=== PATIENT | male | born 1995 | race Caucasian/White ===

== ENCOUNTER 2019-12-17 17:06 | Emergency (ER) | payer SELFPAY ==
--- NOTE | 2019-12-17 17:25 | PDOC ---
Rapid Medical Evaluation Time Seen by Provider: 12/17/19 17:21 Medical Evaluation: 12/17/19 17:22 Pt presents for evaluation for detox. He snorts heroine daily for 2 years. Last used today. Exam: NAD, pupils EOMI Orders: basic labs, urine tox Pt to proceed to the ER for further evaluation Discharge Disposition - Diagnosis Desire for detoxification - Referrals - Patient Instructions - Post Discharge Activity
[2019-12-17 17:31] VITALS: BP 158/94; PULSE 98; TEMP 98
[2019-12-17 18:35] LABS: BASO % 0.5 % (0-2.0); EOS % 1.1 % (0-4.5); HEMATOCRIT 39.2 % (35.4-49); HEMOGLOBIN 12.8 GM/dL (11.7-16.9); LYMPH % 36.3 % (8-40); MCH 26.9 pg (25.7-33.7); MCHC 32.7 g/dl (32.0-35.9); MEAN CELL VOLUME 82.2 fl (80-96); MEAN PLT VOLUME 7.3 fl (7.5-11.1); MONO % 7.3 % (3.8-10.2); NEUT % 54.8 % (42.8-82.8); PLATELET COUNT 202 K/MM3 (134-434); RBC 4.77 M/mm3 (4.00-5.60); RDW 13.6 % (11.9-15.9); WHITE BLOOD COUNT 6.7 K/mm3 (4.0-10.0)
[2019-12-17 18:48] LABS: COCAINE, UR NEGATIVE ng/ml (CUTOFF=300); METHADONE, UR NEGATIVE ng/ml (CUTOFF=300); PHENCYCLIDINE,URINE NEGATIVE ng/ml (CUTOFF=25); URINE AMPHETAMINES NEGATIVE ng/ml (CUTOFF=500); URINE BARBITURATES NEGATIVE ng/ml (CUTOFF=200); URINE BENZODIAZEPINES NEGATIVE ng/ml (CUTOFF=200)
[2019-12-17 18:51] LABS: OPIATES, URI POSITIVE ng/ml (CUTOFF=300)
[2019-12-17 19:04] LABS: ALBUMIN 3.4 g/dl (3.4-5.0); BILIRUBIN,TOTAL 0.2 mg/dL (0.2-1); BLOOD UREA NITROGEN 13.7 mg/dL (7-18); CALCIUM 9.3 mg/dL (8.5-10.1); CREATININE 0.9 mg/dL (0.55-1.3); TOT PROT 6.6 g/dl (6.4-8.2)
--- NOTE | 2019-12-17 19:19 | PDOC ---
History of Present Illness - General Chief Complaint: Weakness Stated Complaint: DRUGS ISSUES Time Seen by Provider: 12/17/19 17:21 - History of Present Illness Initial Comments: 12/17/19 19:18 24-year-old male without comorbidities presents for evaluation requesting detox from heroin Past History - Past Medical History Allergies/Adverse Reactions: Allergies Allergy/AdvReac Type Severity Reaction Status Date / Time No Known Allergies Allergy Verified 12/17/19 17:28 - Psycho Social/Smoking Cessation Hx Smoking History: Never smoked Hx Alcohol Use: No Drug/Substance Use Hx: Yes (HEROINE) Review of Systems - Review of Systems Constitutional: Yes: See HPI *Physical Exam - Vital Signs Last Vital Signs Temp Pulse Resp BP Pulse Ox 98 F 98 H 18 158/94 99 12/17/19 17:28 12/17/19 17:28 12/17/19 17:28 12/17/19 17:28 12/17/19 17:28 - Physical Exam 12/17/19 19:18 GENERAL: The patient is awake, alert, and fully oriented, in no acute distress. HEAD: Normal with no signs of trauma. EYES: sclera anicteric, conjunctiva clear. ENT: Ears normal tympanic membranes normal oropharynx clear uvula midline NECK: Normal range of motion LUNGS: Breath sounds equal, clear to auscultation bilaterally. No wheezes, and no crackles. HEART: S1 and S2 without murmur, rub or gallop. ABDOMEN: Soft, nontender, normoactive bowel sounds. No guarding, no rebound. No masses. EXTREMITIES: Normal range of motion, no edema. No clubbing or cyanosis. No cords, erythema, or tenderness. NEUROLOGICAL: Cranial nerves II through XII grossly intact. PSYCH: Normal mood, normal affect. SKIN: Warm, Dry, normal turgor, no rashes or lesions noted. ED Treatment Course - LABORATORY CBC & Chemistry Diagram: 12/17/19 17:09 12/17/19 17:09 - ADDITIONAL ORDERS Additional order review: Laboratory Results 12/17/19 12/17/19 17:09 17:09 Sodium 142 Potassium 4.0 Chloride 105 Carbon Dioxide 33 H Anion Gap 4 L BUN 13.7 Creatinine 0.9 Est GFR (CKD-EPI)AfAm 137.10 Est GFR (CKD-EPI)NonAf 118.29 Random Glucose 92 Calcium 9.3 Total Bilirubin 0.2 AST 25 ALT 34 Alkaline Phosphatase 65 Total Protein 6.6 Albumin 3.4 Opiates Screen Positive A* Methadone Screen Negative Barbiturate Screen Negative Phencyclidine Screen Negative Ur Amphetamines Screen Negative MDMA (Ecstasy) Screen Negative Benzodiazepines Screen Negative Cocaine Screen Negative U Marijuana (THC) Screen Positive A* 12/17/19 17:09 RBC 4.77 MCV 82.2 MCHC 32.7 RDW 13.6 MPV 7.3 L Neutrophils % 54.8 Lymphocytes % 36.3 Monocytes % 7.3 Eosinophils % 1.1 Basophils % 0.5 Medical Decision Making - Medical Decision Making 12/17/19 19:18 First come first serve beds available at [facility] called for transportation Discharge - Discharge Information Problems reviewed: Yes Clinical Impression/Diagnosis: Desire for detoxification Condition: Stable Disposition: HOME - Admission No - Follow up/Referral - Patient Discharge Instructions Additional Instructions: Report the part care via security transportation and return to the emergency room should you have further issues or concerns - Post Discharge Activity
== END 2019-12-17 19:28 | disposition home or self-care (01) ==
LOC: JERFT 17:06
DX: F11.20 Opioid dependence, uncomplicated (principal)
CPT/HCPCS: 36415; 80053; 80307; 85025; 99284-25

== ENCOUNTER 2019-12-17 20:45 | Inpatient (IN) | payer SELFPAY ==
[2019-12-17 22:31] VITALS: BMI 24.3
--- NOTE | 2019-12-18 01:52 | HP ---
"COWS - Scale Resting Pulse: 1= HI 81-100 Sweatin=Flushed/Facial Moisture Restless Observation: 1= Difficult to Sit Still Pupil Size: 1= Pupils >than Normal Bone or Joint Aches: 4=Acute Joint/Muscle Pain Runny Nose/ Eye Tearin= Runny Nose/Eyes GI Upset > 30mins: 1= Stomach Cramp Tremor Observation: 2= Slight Tremor Visible Yawning Observation: 0= None Anxiety or Irritability: 2=Irritable/Anxious Goose Flesh Skin: 0=Smooth Skin COWS Score: 16 CIWA Score - Admission Criteria [facility] Guidelines: Admission for Medically Managed Detox: Requires at least one of the followin. CIWA greater than 12 2. Seizures within the past 24 hours 3. Delirium tremens within the past 24 hours 4. Hallucinations within the past 24 hours 5. Acute intervention needed for co occurring medical disorder 6. Acute intervention needed for co occurring psychiatric disorder 7. Severe withdrawal that cannot be handled at a lower level of care (continued vomiting, continued diarrhea, abnormal vital signs) requiring intravenous medication and/or fluids 8. Admitting History and Physical - Smoking History Smoking history: Never smoked - Alcohol/Substance Use Hx Alcohol Use: No Admission ROS [facility] - [facility] Chief Complaint: Heroin withdrawal symptoms Allergies/Adverse Reactions: Allergies Allergy/AdvReac Type Severity Reaction Status Date / Time No Known Allergies Allergy Verified 12/17/19 22:21 History of Present Illness: 24 years old male with 3 years history of heroin dependence is seeking admission to detox. Patient was referred from ER and this is his first admission to detox and to [facility]. He denies past medical history and psych. history. He reports periods of depression and is requesting for psych. assessment. He denies suicide attempt and suicidal ideation at this time. Confidential Drug Utilization Report Search Terms: chandan neves, 1995 Search Date: 12/18/2019 01:50:04 AM The Drug Utilization Report below displays all of the controlled substance prescriptions, if any, that your patient has filled in the last twelve months. The information displayed on this report is compiled from pharmacy submissions to the Department, and accurately reflects the information as submitted by the pharmacies. This report was requested by: Chelsie Jeffers | Reference #: [id number] There are no results for the search terms that you entered. 2017 [place] Department of Health - [place] of Narcotic Enforcement 12/18/2019 01:50:04 Exam Limitations: No Limitations - Ebola screening Have you traveled outside of the country in the last 21 days: No Have you been sick,other than usual withdrawal symptoms: No Do you have a fever: No - Review of Systems Constitutional: Chills, Malaise, Night Sweats, Changes in sleep EENT: reports: Nose Congestion Respiratory: reports: No Symptoms reported Cardiac: reports: No Symptoms Reported GI: reports: Nausea, Poor Appetite, Poor Fluid Intake, Abdominal cramping : reports: No Symptoms Reported Musculoskeletal: reports: Joint Pain, Other (leg pain) Integumentary: reports: Dryness, Flushing Neuro: reports: Tremors Endocrine: reports: No Symptoms Reported Hematology: reports: No Symptoms Reported Psychiatric: reports: No Sypmtoms Reported, Mood/Affect Appropiate, Orientated x3, Depressed Other Systems: Reviewed and Negative Patient History - Patient Medical History Hx Anemia: No Hx Asthma: No Hx Chronic Obstructive Pulmonary Disease (COPD): No Hx Cancer: No Hx Cardiac Disorders: No Hx Congestive Heart Failure: No Hx Hypertension: No Hx Hypercholesterolemia: No HX Cerebrovascular Accident: No Hx Seizures: No Hx Dementia: No Hx Diabetes: No Hx Gastrointestinal Disorders: No Hx Liver Disease: No Hx Genitourinary Disorders: No Hx Sexually Transmitted Disorders: No Hx Renal Disease (ESRD): No Hx Thyroid Disease: No Hx Human Immunodeficiency Virus (HIV): No (Never tested, refused test) Hx Hepatitis C: No Hx Depression: Yes Hx Suicide Attempt: No (Denies suicide attempt and suicidal ideation at this time) Hx Bipolar Disorder: No Hx Schizophrenia: No - Patient Surgical History Past Surgical History: No - PPD History Previous Implant?: No Implanted On Prior [facility] Admission?: No PPD to be Administered?: Yes - Reproductive History Patient is a Female of Child Bearing Age (11 -55 yrs old): No (male) - Smoking Cessation Smoking history: Current every day smoker Have you smoked in the past 12 months: Yes Aproximately how many cigarettes per day: 10 Hx Chewing Tobacco Use: No Initiated information on smoking cessation: Yes 'Breaking Loose' booklet given: 12/18/19 - Substance & Tx. History Hx Alcohol Use: No Hx Substance Use: Yes Substance Use Type: Heroin, Marijuana Hx Substance Use Treatment: No - Substances abused Heroin Other (specify): SNIFF Frequency: Daily Amount used: 5 BAGS Age of first use: 21 Date of last use: 12/17/19 Marijuana/Hashish Substance route: Smoking Frequency: 1-2 times per week Amount used: 1 GRAM Age of first use: 15 Date of last use: 12/17/19 Admission Physical Exam [facility] - Vital Signs Vital Signs: Vital Signs - 24 hr 12/17/19 22:20 Temperature 98.4 F Pulse Rate 89 Respiratory 18 Rate Blood Pressure 128/76 - Physical General Appearance: Yes: Moderate Distress, Tremorous, Sweating, Anxious HEENTM: Yes: Within Normal Limits Respiratory: Yes: Lungs Clear, Normal Breath Sounds, No Respiratory Distress Neck: Yes: Within Normal Limits Breast: Yes: Breast Exam Deferred Cardiology: Yes: Within Normal Limits Abdominal: Yes: Normal Bowel Sounds, Soft Genitourinary: Yes: Within Normal Limits Back: Yes: Normal Inspection Musculoskeletal: Yes: Back pain, Other (leg pain) Extremities: Yes: Tremors Neurological: Yes: Normal Mood/Affect Integumentary: Yes: Warm Lymphatic: Yes: Within Normal Limits - Diagnostic (1) Opioid dependence with withdrawal Current Visit: Yes Status: Acute (2) Nicotine dependence Current Visit: Yes Status: Acute Qualifiers: Nicotine product type: cigarettes Substance use status: uncomplicated Qualified Code(s): F17.210 - Nicotine dependence, cigarettes, uncomplicated (3) Depressed affect Current Visit: Yes Status: Acute Cleared for Admission [facility] - Detox or Rehab [facility] Level of Care: Medically Managed Detox Regimen/Protocol: Methadone Claeared for Rehab Admission: No Breathalyzer - Breathalyzer Breathalyzer: 0 Urine Drug Screen - Test Device Lot number: [id number] Expiration date: 10/11/21 - Control Is test valid?: Yes - Results Drug screen NEGATIVE: No Urine drug screen results: THC-Marijuana, FEN-Fentanyl, MOP-Opiates Inpatient Rehab Admission - Rehab Decision to Admit Inpatient rehab admission?: No"
[2019-12-18] MEDS ORDERED: MENTHOL/PHENOL 1 EACH UD MM PRN (02:21)
[2019-12-18] MEDS ORDERED: IBUPROFEN 400 MG TABLET (FP) PO PRN (02:21)
[2019-12-18] MEDS ORDERED: cloNIDine HCL 0.1 MG TABLET PO PRN (02:21)
[2019-12-18] MEDS ORDERED: MAG HYDROX/AL HYDROX/SIMETH 30 ML UNIT-DOSE CUP PO PRN (02:21)
[2019-12-18] MEDS ORDERED: MAGNESIUM CITRATE 300 ML BOTTLE PO PRN (02:21)
[2019-12-18] MEDS ORDERED: BISMUTH SUBSALICYLATE 524 MG/30 ML UD PO PRN (02:21)
[2019-12-18] MEDS ORDERED: MELATONIN 5 MG TABLETS PO PRN (02:21)
[2019-12-18] MEDS ORDERED: MAGNESIUM HYDROX 2400MG/30ML ORAL SUSPENSION 30 ML CUP PO PRN (02:21)
[2019-12-18] MEDS ORDERED: METHADONE HCL 10 MG TABLET (FOR DETOX USE ONLY) PO ONE (02:21)
[2019-12-18] MEDS ORDERED: ACETAMINOPHEN 325 MG TABLET (FP) PO PRN ×2 (02:21)
--- NOTE | 2019-12-18 10:08 | PN ---
[facility] COWS - Scale Resting Pulse: 0= AR 80 or Below Sweatin= Chills/Flushing Restless Observation: 1= Difficult to Sit Still Bone or Joint Aches: 1= Mild Discomfort Runny Nose/ Eye Tearin= Nasal Congestion GI Upset > 30mins: 2= Nausea/Diarrhea Tremor Observation of Outstretched Hands: 2= Slight Tremor Visible Yawning Observation: 1= 1-2x During Session Anxiety or Irritability: 2=Irritable/Anxious Goose Flesh Skin: 0=Smooth Skin [facility] Progress Note (SOAP) Subjective: alert,irritable,anxious,interrupted sleep,pain in the body and back Objective: 12/18/19 10:07 Vital Signs Temperature 98.1 F 12/18/19 09:00 Pulse Rate 80 12/18/19 09:00 Respiratory Rate 18 12/18/19 09:00 Blood Pressure 129/77 12/18/19 09:00 O2 Sat by Pulse Oximetry (%) Assessment: 12/18/19 10:07 withdrawal symptom Plan: continue detox methadone regimen
[2019-12-18] MEDS: NICOTINE 14 MG/24 HOURS TOPICAL PATCH TD SCH (11:00)
[2019-12-18] MEDS: PRENATAL VITAMINS W/ FOLIC ACID TABLET (FP) PO SCH (11:00)
--- NOTE | 2019-12-18 13:39 | CONSULT ---
[facility] Psychiatric Consult - Data Date of interview: 12/18/19 Psychiatric History: Patient was approached at bedside on several occasions. He is not responding to verbal stimuli. Apparently, he has been in bed all day and both breakfast and luncch trays are untouched sitting on his bedside table. Please reconsult when patient is awake and appropriate for intervieww
--- NOTE | 2019-12-18 14:29 | EKG ---
Test Reason : Blood Pressure : / mmHG Vent. Rate : 084 BPM Atrial Rate : 084 BPM P-R Int : 130 ms QRS Dur : 086 ms QT Int : 370 ms P-R-T Axes : 048 062 039 degrees QTc Int : 437 ms NORMAL SINUS RHYTHM NORMAL ECG NO PREVIOUS ECGS AVAILABLE Confirmed by TONE DELEON MD ([id number]) on 12/18/2019 2:29:25 PM Referred By: Lars Philip Confirmed By:TONE DELEON MD
[2019-12-18] MEDS: hydrOXYzine PAMOATE 25 MG CAPSULE (FP) PO PRN (17:11)
[2019-12-18] MEDS ORDERED: THIAMINE HCL 100 MG TABLET (FP) PO SCH (22:00)
[2019-12-19] MEDS: METHOCARBAMOL 500 MG TABLET PO PRN ×2 (06:05→13:46)
[2019-12-19] MEDS: hydrOXYzine PAMOATE 25 MG CAPSULE (FP) PO PRN ×2 (06:05→13:45)
[2019-12-19] MEDS: NICOTINE POLACRILEX 2 MG GUM BUC PRN ×2 (06:07→13:46)
[2019-12-19] MEDS ORDERED: METHADONE HCL 5 MG TABLET (FOR DETOX USE ONLY) PO ONE (10:00)
--- NOTE | 2019-12-19 10:22 | PN ---
[facility] COWS - Scale Resting Pulse: 0= [place] 80 or Below Sweatin= No chills or Flushing Restless Observation: 1= Difficult to Sit Still Pupil Size: 1= Pupils >than Normal Bone or Joint Aches: 1= Mild Discomfort Runny Nose/ Eye Tearin= Nasal Congestion GI Upset > 30mins: 1= Stomach Cramp Tremor Observation of Outstretched Hands: 2= Slight Tremor Visible Yawning Observation: 1= 1-2x During Session Anxiety or Irritability: 2=Irritable/Anxious Goose Flesh Skin: 0=Smooth Skin COWS Score: 10 BHS Progress Note (SOAP) Subjective: alert,irritable,anxious,interrupted sleep,pain in the body and back Objective: 12/19/19 10:21 Vital Signs Temperature 98.1 F 12/19/19 08:57 Pulse Rate 78 12/19/19 08:57 Respiratory Rate 18 12/19/19 08:57 Blood Pressure 135/91 12/19/19 08:57 O2 Sat by Pulse Oximetry (%) Assessment: 12/19/19 10:22 withdrawal symptom Plan: continue methadone regimen
[2019-12-19] MEDS: NICOTINE 14 MG/24 HOURS TOPICAL PATCH TD SCH (10:36)
[2019-12-19] MEDS: PRENATAL VITAMINS W/ FOLIC ACID TABLET (FP) PO SCH (10:36)
[2019-12-19 10:42] LABS: HEMATOCRIT 41.6 % (35.4-49); HEMOGLOBIN 13.5 GM/dL (11.7-16.9); MCH 26.6 pg (25.7-33.7); MCHC 32.3 g/dl (32.0-35.9); MEAN CELL VOLUME 82.2 fl (80-96); MEAN PLT VOLUME 7.7 fl (7.5-11.1); PLATELET COUNT 212 K/MM3 (134-434); RBC 5.06 M/mm3 (4.00-5.60); RDW 13.7 % (11.9-15.9); WHITE BLOOD COUNT 5.5 K/mm3 (4.0-10.0)
[2019-12-19 10:49] LABS: ALBUMIN 3.2 g/dl (3.4-5.0); BILIRUBIN,TOTAL 0.5 mg/dL (0.2-1); BLOOD UREA NITROGEN 9.5 mg/dL (7-18); CALCIUM 9.2 mg/dL (8.5-10.1); CREATININE 0.8 mg/dL (0.55-1.3); POTASSIUM 4.2 mmol/L (3.5-5.1); TOT PROT 6.6 g/dl (6.4-8.2)
[2019-12-19 14:29] VITALS: BP 120/54; PULSE 80; TEMP 98.6
--- NOTE | 2019-12-19 15:21 | PN ---
[facility] Progress Note Note: pt was seen before leaving who states he wants to leave and is feeling better. Pt appears very anxious and was told to stay and complete his detox to prevent relapse, seizures, DTs, OD, and or loss, pt chose to sign out AMA.
--- NOTE | 2019-12-19 15:59 | DS ---
[facility] Detox Discharge Summary Admission Date: 12/18/19 - History Present History: Opioid Dependence - Physical Exam Results Vital Signs: Vital Signs Temperature 98.6 F 12/19/19 12:45 Pulse Rate 80 12/19/19 12:45 Respiratory Rate 18 12/19/19 12:45 Blood Pressure 120/54 L 12/19/19 12:45 O2 Sat by Pulse Oximetry (%) Pertinent Admission Physical Exam Findings: Vital Signs Temperature 98.6 F 12/19/19 12:45 Pulse Rate 80 12/19/19 12:45 Respiratory Rate 18 12/19/19 12:45 Blood Pressure 120/54 L 12/19/19 12:45 O2 Sat by Pulse Oximetry (%) Laboratory Tests 12/19/19 12/19/19 08:00 08:00 WBC 5.5 RBC 5.06 Hgb 13.5 Hct 41.6 MCV 82.2 MCH 26.6 MCHC 32.3 RDW 13.7 Plt Count 212 MPV 7.7 Sodium 139 Potassium 4.2 Chloride 106 Carbon Dioxide 31 Anion Gap 3 L BUN 9.5 Creatinine 0.8 Est GFR (CKD-EPI)AfAm 143.90 Est GFR (CKD-EPI)NonAf 124.16 Random Glucose 99 Calcium 9.2 Total Bilirubin 0.5 AST 24 ALT 34 Alkaline Phosphatase 62 Total Protein 6.6 Albumin 3.2 L aaox3 ambulating no acute distress - Treatment Hospital Course: Rehab Referral Accepted - Medication Discharge Medications: Ambulatory Orders NK [No Known Home Medication] 12/17/19 - Diagnosis (1) Depressed affect Current Visit: Yes Status: Acute (2) Nicotine dependence Current Visit: Yes Status: Acute Qualifiers: Nicotine product type: cigarettes Substance use status: uncomplicated Qualified Code(s): F17.210 - Nicotine dependence, cigarettes, uncomplicated (3) Opioid dependence with withdrawal Current Visit: Yes Status: Chronic (4) Desire for detoxification Current Visit: No Status: Acute - AMA Did Patient Leave Against Medical Advice: Yes
[2019-12-20] MEDS ORDERED: METHADONE HCL 10 MG TABLET (FOR DETOX USE ONLY) PO ONE (10:00)
[2019-12-21] MEDS ORDERED: METHADONE HCL 5 MG TABLET (FOR DETOX USE ONLY) PO ONE (06:00)
== END 2019-12-19 15:25 | disposition left against medical advice (07) | DRG 770 ==
LOC: YASAS 20:45 → Y6N 12-18 02:11
PROVIDERS: ADMIT Allergy & Immunology; ATTEND Allergy & Immunology
PROC: HZ2ZZZZ Detoxification Services for Substance Abuse Treatment (ICD-10-PCS; principal; 2019-12-18)
DX: F11.23 Opioid dependence with withdrawal (principal); F17.210 Nicotine dependence, cigarettes, uncomplicated; F32.9 Major depressive disorder, single episode, unspecified
CPT/HCPCS: 36415; 80053; 85027; 86593; 93005; 93010; J0735

== ENCOUNTER 2020-07-06 11:42 | Emergency (ER) | payer OTHER ==
[2020-07-06 11:48] VITALS: BP 128/79; PULSE 66; TEMP 98.5; BMI 25.8
[2020-07-06] MEDS ORDERED: TETRACAINE 0.5% HCL 0.6ML DROPPER.BOTTLE OS ONE (11:48)
--- NOTE | 2020-07-06 11:48 | PDOC ---
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 denies diplopia and changes in vision PE: no injection EOMI intact no FB visualized A/P: tetracaine and fluorscien Pt to precede to ED for further eval and treatment
[2020-07-06] MEDS ORDERED: FLUORESCEIN NA 1 EA STRIP OS ONE (11:49)
[2020-07-06] MEDS ORDERED: FLUORESCEIN NA 1 EA STRIP ONE (11:51)
[2020-07-06] MEDS ORDERED: TETRACAINE 0.5% OPHTH SOLN 2 ML BOTTLE ONE (11:51)
--- NOTE | 2020-07-06 12:20 | PDOC ---
History of Present Illness - General Chief Complaint: Eye Problem Stated Complaint: LT. EYE INJURY Time Seen by Provider: 07/06/20 11:46 History Source: Patient Exam Limitations: No Limitations - History of Present Illness Initial Comments: 07/06/20 12:23 Patient is a 25-year-old male who presents to the ED with complaint of a foreign body sensation in his left eye. 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 He states the eye became immediately sensitive and he was unable to open it. He was seen in an urgent care where they attempted to flush his eye but were unable to do a full evaluation. The patient states that very quickly thereafter his eye felt much better and he no longer has a foreign body sensation. He was concerned about a metal splinter in his eye. The patient was wearing eye protection but believes that the splinter could have gotten past the eye protection. He denies wearing contacts or glasses. He denies any visual changes. He has no pain. He denies any past medical history or allergies to medications. Past History - Medical History Allergies/Adverse Reactions: Allergies Allergy/AdvReac Type Severity Reaction Status Date / Time No Known Allergies Allergy Verified 07/06/20 11:46 Home Medications: Ambulatory Orders Erythromycin 0.5% Eye Ointment [Erythromycin 0.5% Eye Ointment -] 1 applic OS BID 7 Days #1 tube 07/06/20 Anemia: No Asthma: No Cancer: No Cardiac Disorders: No CVA: No COPD: No CHF: No Dementia: No Diabetes: No GI Disorders: No Disorders: No HTN: No Hypercholesterolemia: No Kidney Stones: No Liver Disease: No Seizures: No Thyroid Disease: No - Surgical History Abdominal Surgery: No Appendectomy: No Cardiac Surgery: No Cholecystectomy: No Lung Surgery: No Neurologic Surgery: No Orthopedic Surgery: No - Reproductive History Testicular Surgery: No - Immunization History Immunization Up to Date: Yes - Psycho-Social/Smoking History Smoking History: Current every day smoker Have you smoked in the past 12 months: Yes Number of Cigarettes Smoked Daily: 10 Information on smoking cessation initiated: No 'Breaking Loose' booklet given: 12/18/19 - Substance Abuse Hx (Audit-C & DAST Scrn) How often the patient has a drink containing alcohol: Never Score: In Men: 4 or > Positive; In Women: 3 or > Positive: 0 Screen Result (Pos requires Nsg. Audit-10AR): Negative In the last yr the pt used illegal drug/Rx for NonMed reason: No Score: Yes response is considered Positive: 0 Screen Result (Positive result requires Nsg. DAST-10): Negative Review of Systems - Review of Systems Comments:: 07/06/20 12:24 - Review of Systems Able to Perform ROS?: Yes Constitutional: No: Fever, Chills, Loss of Appetite, Night Sweats, Weakness HEENTM: No: Vision changes, Ear Pain, Throat Pain, Throat Swelling, Mouth Pain, Difficulty Swallowing; positive: Foreign body sensation left eye Respiratory: No: Cough, Shortness of Breath, Wheezing, Sputum Production Cardiac (ROS): No: Chest Pain, Chest Tightness, Palpitations, Irregular Heart Beat, Edema Musculoskeletal: No: Muscle Pain, Back Pain, Joint Pain, Muscle Weakness, Neck Pain Integumentary: No: Lesions, Rash Neurological: No: Headache, Numbness, Tingling, Weakness, Speech Difficulties *Physical Exam - Vital Signs Last Vital Signs Temp Pulse Resp BP Pulse Ox 98.5 F 66 20 128/79 100 07/06/20 11:46 07/06/20 11:46 07/06/20 11:46 07/06/20 11:46 07/06/20 11:46 - Physical Exam 07/06/20 12:24 - Physical Exam General Appearance: Nourished, Appropriately Dressed, No Distress HEENT: EOMI, Normal Voice, No Pharyngeal Erythema, No Muffled/Hoarse voice, No Tonsillar Exudate, No Tonsillar Erythema, No Nasal Congestion, No Rhinorrhea, Hearing Grossly Normal, TMs Normal, No TM Bulging, No TM Dullness, No TM Erythema; mild injection to the left eye appreciated. Visual acuity: OS 20/20, OD 20/20; left upper and lower eyelids inverted to assess for foreign body with none visualized. Upper and lower eyelids swiped with a sterile cotton tipped applicator without visualization of foreign body. Fluorescein stain showed no uptake with Carrasquillo lamp evaluation. No sign of corneal abrasion appreciated Neck: Supple, No Lymphadenopathy (R), No Lymphadenopathy (L), No Rigidity, No Decreased range of motion Respiratory/Chest: Lungs Clear, Normal Breath Sounds. No Respiratory Distress, No Accessory Muscle Use Cardiovascular: Regular Rhythm, Regular Rate, S1, S2 Musculoskeletal: Normal Inspection. No Decreased Range of Motion Extremity: Normal Capillary Refill, Normal Inspection Integumentary: Normal Color, Dry. 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 There was no foreign body appreciated but both upper and lower lids were swiped with a sterile cotton swab. Both upper and lower eyelids were everted for better visualization. ED Treatment Course - Medications Given in the ED: ED Medications Discontinued Medications Generic Name Dose Route Start Last Admin Trade Name [place]ula PRN Reason Stop Dose Admin Fluorescein Sodium 0 ea 07/06/20 11:49 07/06/20 12:09 Fluorets - OS 07/06/20 11:50 1 ea ONCE ONE Administration Tetracaine HCl 1 drop 07/06/20 11:48 07/06/20 12:09 Tetravisc 0.5% Eye Drops - OS 07/06/20 11:49 1 drop ONCE ONE Administration Medical Decision Making - Medical Decision Making 07/06/20 12:16 Assessment: Patient is a 25-year-old male who was concerned about a metal splinter in his eye after a foreign body sensation 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 He was grinding a cast iron pipe. Plan: -Left eye stained and swiped with a sterile cotton tipped applicator without evidence of foreign body or corneal abrasion -We will start the patient on erythromycin ointment ophthalmic -We will refer to ophthalmology for further evaluation and treatment. -Patient understands and agrees with this treatment plan and he is stable for discharge. Discharge - Discharge Information Problems reviewed: Yes Clinical Impression/Diagnosis: Sensation of foreign body in eye Condition: Stable Disposition: HOME - Additional Discharge Information Prescriptions: Erythromycin 0.5% Eye Ointment [Erythromycin 0.5% Eye Ointment -] 1 applic OD BID 7 Days #1 tube - Follow up/Referral Referrals: Tashi Azevedo MD [Staff Physician] - Garry Waller MD [Staff Physician] - - Patient Discharge Instructions Patient Printed Discharge Instructions: DI for Foreign Body in the Eye Additional Instructions: He did not have any evidence of foreign body in your eye when stained in the emergency department. You will be getting an ointment to place in your eye to help prevent infection. Be sure to follow-up with ophthalmology within 2 days and you have been given 2 referrals. Always wear eye protection particularly while at work. Avoid rubbing your eyes, particularly with dirty fingers, to pre vent a foreign body in your eye. Return to the emergency department for any worsening symptoms, foreign body sensation, visual changes or any other worsening symptoms. - Post Discharge Activity
== END 2020-07-06 12:35 | disposition home or self-care (01) ==
LOC: JERFT 11:42
DX: T15.12XA Foreign body in conjunctival sac, left eye, initial encounter (principal)
CPT/HCPCS: 99283-25

== ENCOUNTER 2021-06-11 10:34 | Inpatient (IN) | payer OTHER ==
[2021-06-11] MEDS ORDERED: MAGNESIUM CITRATE 300 ML BOTTLE PO PRN (11:16)
[2021-06-11] MEDS ORDERED: MAGNESIUM HYDROX 2400MG/30ML ORAL SUSPENSION 30 ML CUP PO PRN (11:16)
[2021-06-11] MEDS ORDERED: MAG HYDROX/AL HYDROX/SIMETH 30 ML UNIT-DOSE CUP PO PRN (11:16)
[2021-06-11] MEDS ORDERED: ACETAMINOPHEN 325 MG TABLET (FP) PO PRN ×2 (11:16)
[2021-06-11] MEDS ORDERED: MENTHOL/PHENOL 1 EACH UD MM PRN (11:16)
[2021-06-11] MEDS ORDERED: BUPRENORPHINE/NALOXONE 2 MG/0.5 MG FILM PACKET SL ONE (11:16)
[2021-06-11] MEDS ORDERED: BISMUTH SUBSALICYLATE 524 MG/30 ML PO PRN (11:16)
[2021-06-11] MEDS ORDERED: ONDANSETRON *ODT* 4 MG TABLET SL PRN (11:16)
[2021-06-11] MEDS ORDERED: IBUPROFEN 400 MG TABLET (FP) PO PRN (11:16)
[2021-06-11 12:19] VITALS: BMI 29.2
[2021-06-11] MEDS: hydrOXYzine PAMOATE 25 MG CAPSULE (FP) PO SCH ×3 (14:31→22:36)
[2021-06-11] MEDS: PRENATAL VITAMINS W/ FOLIC ACID TABLET (FP) PO SCH (14:31)
[2021-06-11] MEDS: cloNIDine HCL 0.1 MG TABLET PO PRN ×2 (14:32→22:38)
[2021-06-11] MEDS: NICOTINE 10 MG CARTRIDGE (INHALER) IH PRN ×2 (14:33→22:39)
[2021-06-11] MEDS ORDERED: BUPRENORPHINE/NALOXONE 4 MG/1 MG FILM PACKET SL PRN (17:17)
[2021-06-11] MEDS ORDERED: MELATONIN 5 MG TABLETS PO SCH (22:00)
[2021-06-11] MEDS: THIAMINE HCL 100 MG TABLET (FP) PO SCH (22:36)
[2021-06-11] MEDS: METHOCARBAMOL 500 MG TABLET PO PRN (22:36)
[2021-06-12] MEDS: hydrOXYzine PAMOATE 25 MG CAPSULE (FP) PO SCH ×5 (07:06→22:14)
[2021-06-12] MEDS: NICOTINE 10 MG CARTRIDGE (INHALER) IH PRN (08:58)
[2021-06-12] MEDS ORDERED: BUPRENORPHINE/NALOXONE 12 MG-3 MG SL FILM PACKET SL ONE (09:00)
[2021-06-12] MEDS: PRENATAL VITAMINS W/ FOLIC ACID TABLET (FP) PO SCH (09:51)
[2021-06-12 10:47] LABS: HEMATOCRIT 42.7 % (35.4-49); HEMOGLOBIN 14.2 GM/dL (11.7-16.9); MCH 26.3 pg (25.7-33.7); MCHC 33.2 g/dl (32.0-35.9); MEAN CELL VOLUME 79.2 fl (80-96); PLATELET COUNT 244 10^3/uL (134-434); RBC 5.39 M/mm3 (4.00-5.60); RDW 13.5 % (11.9-15.9)
[2021-06-12 10:53] LABS: CALCIUM 9.3 mg/dL (8.5-10.1)
[2021-06-12 10:54] LABS: ALBUMIN 3.7 g/dl (3.4-5.0)
[2021-06-12 10:57] LABS: CREATININE 0.9 mg/dL (0.55-1.3)
[2021-06-12 10:59] LABS: BILIRUBIN,TOTAL 0.4 mg/dL (0.2-1); TOT PROT 7.4 g/dl (6.4-8.2)
[2021-06-12] MEDS: cloNIDine HCL 0.1 MG TABLET PO PRN ×2 (12:35→22:17)
[2021-06-12] MEDS ORDERED: BUPRENORPHINE/NALOXONE 2 MG/0.5 MG FILM PACKET SL ONE (12:43)
[2021-06-12] MEDS: METHOCARBAMOL 500 MG TABLET PO PRN (13:01)
[2021-06-12] MEDS ORDERED: BUPRENORPHINE/NALOXONE 4 MG/1 MG FILM PACKET SL PRN ×2 (15:00→18:43)
[2021-06-12] MEDS: THIAMINE HCL 100 MG TABLET (FP) PO SCH (22:14)
[2021-06-12] MEDS: SUVOREXANT 10 MG TABLET PO PRN (22:17)
[2021-06-13] MEDS: hydrOXYzine PAMOATE 25 MG CAPSULE (FP) PO SCH (06:54)
[2021-06-13] MEDS ORDERED: BUPRENORPHINE/NALOXONE 12 MG-3 MG SL FILM PACKET SL ONE ×2 (09:00)
[2021-06-13] MEDS ORDERED: hydrOXYzine PAMOATE 25 MG CAPSULE (FP) PO PRN (09:05)
[2021-06-13] MEDS: PRENATAL VITAMINS W/ FOLIC ACID TABLET (FP) PO SCH (10:42)
[2021-06-13] MEDS ORDERED: BUPRENORPHINE/NALOXONE 4 MG/1 MG FILM PACKET SL PRN (15:00)
[2021-06-13] MEDS ORDERED: TRIMETHOBENZAMIDE HCL 200MG/2ML INJ IM ONE (17:56)
[2021-06-13] MEDS: THIAMINE HCL 100 MG TABLET (FP) PO SCH (22:59)
[2021-06-13] MEDS: SUVOREXANT 10 MG TABLET PO PRN (22:59)
[2021-06-14] MEDS ORDERED: BUPRENORPHINE/NALOXONE 12 MG-3 MG SL FILM (DETOX) SL ONE (09:00)
[2021-06-14] MEDS ORDERED: BUPRENORPHINE/NALOXONE 12 MG-3 MG SL FILM PACKET SL ONE ×2 (09:00→09:12)
[2021-06-14 09:46] VITALS: BP 134/85; PULSE 72; TEMP 97.1
[2021-06-14] MEDS: PRENATAL VITAMINS W/ FOLIC ACID TABLET (FP) PO SCH (09:57)
[2021-06-14] MEDS ORDERED: BUPRENORPHINE/NALOXONE 2 MG/0.5 MG FILM (DETOX) SL ONE (21:00)
[2021-06-15] MEDS ORDERED: BUPRENORPHINE/NALOXONE 4 MG/1 MG FILM (DETOX) SL ONE (06:00)
[2021-06-15] MEDS ORDERED: BUPRENORPHINE/NALOXONE 12 MG-3 MG SL FILM (DETOX) SL ONE (09:00)
[2021-06-15] MEDS ORDERED: BUPRENORPHINE/NALOXONE 2 MG/0.5 MG FILM (DETOX) SL ONE (21:00)
[2021-06-16] MEDS ORDERED: BUPRENORPHINE/NALOXONE 4 MG/1 MG FILM (DETOX) SL ONE (06:00)
== END 2021-06-14 10:50 | disposition home or self-care (01) | DRG 773 ==
LOC: YASAS 10:34 → Y3N 13:11
PROVIDERS: ADMIT Allergy & Immunology; ATTEND Allergy & Immunology
PROC: HZ2ZZZZ Detoxification Services for Substance Abuse Treatment (ICD-10-PCS; principal; 2021-06-11)
DX: F11.23 Opioid dependence with withdrawal (principal); F17.210 Nicotine dependence, cigarettes, uncomplicated; F19.24 Other psychoactive substance dependence with psychoactive substance-induced mood disorder; F19.282 Other psychoactive substance dependence with psychoactive substance-induced sleep disorder; F32.9 Major depressive disorder, single episode, unspecified; H57.89 Other specified disorders of eye and adnexa; Z62.810 Personal history of physical and sexual abuse in childhood
CPT/HCPCS: 36415; 80053; 85027; 86780; C9803; J0735; Q0162; U0003; U0005

== ENCOUNTER 2022-05-26 15:47 | Emergency (ER) | payer OTHER ==
[2022-05-26 16:00] VITALS: BP 127/82; PULSE 83; TEMP 98.2; BMI 28.7
[2022-05-26] MEDS ORDERED: DIPHTH,PERTUSS(ACELL),TET 0.5 ML DISP.SYRIN IM ONE ×2 (16:26→16:42)
== END 2022-05-26 17:30 | disposition home or self-care (01) ==
LOC: JERFT 15:47
PROC: 0HQ1XZZ Repair Face Skin, External Approach (ICD-10-PCS; principal; 2022-05-26)
PROC: 3E0234Z Introduction of Serum, Toxoid and Vaccine into Muscle, Percutaneous Approach (ICD-10-PCS; 2022-05-26)
DX: S01.81XA Laceration without foreign body of other part of head, initial encounter (principal); W26.8XXA Contact with other sharp object(s), not elsewhere classified, initial encounter
CPT/HCPCS: 90715; 99284-25

== ENCOUNTER 2022-07-29 18:16 | Emergency (ER) | payer OTHER ==
[2022-07-29 18:39] VITALS: BP 133/86; PULSE 93; RESP 20; TEMP 98.1; BMI 30.1
[2022-07-29] MEDS ORDERED: methaDONE HCL 10 MG TABLET ONE (20:40)
== END 2022-07-29 20:42 | disposition home or self-care (01) ==
LOC: JERFT 18:16
DX: F11.23 Opioid dependence with withdrawal (principal)
CPT/HCPCS: 99283-25